=== PATIENT | female | born 1970 | race Caucasian/White ===

== ENCOUNTER 2022-09-20 22:36 | Emergency (ER) | payer OTHER ==
[~2022-09-20] VITALS: Ht 170.2 cm; Wt 59.0 kg
[2022-09-20 22:39] VITALS: BP 126/78
--- NOTE | 2022-09-21 00:24 | NUR ---
PATIENT LEFT WITHOUT BEING SEEN BY DR. Olmos. NO FURTHER CARE PROVIDED FOR PATIENT.
== END 2022-09-21 00:24 | disposition left against medical advice (07) ==
LOC: MED 22:36
DX: R10.13 Epigastric pain (principal); Z53.21 Procedure and treatment not carried out due to patient leaving prior to being seen by health care provider
CPT/HCPCS: 99281